=== PATIENT | female | born 1980 | race Caucasian/White ===

== ENCOUNTER 2020-08-30 05:54 | Emergency (ER) | payer OTHER ==
[~2020-08-30] VITALS: Ht 165.1 cm; Wt 58.0 kg
[2020-08-30 06:12] VITALS: BP 124/89
--- NOTE | 2020-08-30 06:13 | PHYS DOC ---
General Adult EDM: Chief Complaint: ABDOMINAL PAIN HPI: HPI: 39 yo (has 6yo son) F PMH chronic fatigue (on naltrexone?), and C2 tumor (s/p removal), presents to the ed with c/o left pelvic pain, sharp, nonradiating, stating it's worse when she walks or flexes her hip, x2 days. Also reports suprapubic pressure. She states her pelvic pain often feels as if she has rectal pain. Last menstrual period was August 12. Last bowel movement was yesterday, normal brown color, denies diarrhea or constipation. Sexually active with her , wears, condoms because she's "sensitive" to control. PSH-C/S, bilateral ACL repair, right rotator cuff repair and C2 spinal cord tumor resection. Patient denies any active vaginal bleeding, abnormal vaginal discharge, itching or odor. Pt denies any alcohol or drug use. Review of Systems: Review of Systems: Constitutional: Denies fever or chills Eyes: Denies change in visual acuity HENT: Denies nasal congestion or sore throat Respiratory: Denies cough or shortness of breath Cardiovascular: Denies chest pain or edema GI: Denies nausea, vomiting, bloody stools or diarrhea : Denies dysuria or hematuria Musculoskeletal: Denies saddle anesthesia or joint pain Integument: Denies rash Neurologic: Denies headache, focal weakness or sensory changes or neck stiffness Endocrine: Denies polyuria or polydipsia Lymphatic: Denies swollen glands Psychiatric: Denies depression or anxiety Heart Score: Risk Factors: Risk Factors: DM, Current or recent (<one month) smoker, HTN, HLP, family history of CAD, obesity. Risk Scores: Score 0 - 3: 2.5% MACE over next 6 weeks - Discharge Home Score 4 - 6: 20.3% MACE over next 6 weeks - Admit for Clinical Observation Score 7 - 10: 72.7% MACE over next 6 weeks - Early Invasive Strategies Physical Exam: PE: Constitutional: Well developed, well nourished, no acute distress, non-toxic appearance, very thin HENT: Normocephalic, atraumatic, bilateral external ears normal, oropharynx moist, no oral exudates, nose normal. [] Eyes: EOMI, conjunctiva normal, no discharge. [] Neck: Normal range of motion, supple, no stridor. [] Cardiovascular:Heart rate regular rhythm, no murmur [] Lungs & Thorax: Bilateral breath sounds clear to auscultation [] Abdomen: Bowel sounds normal, soft, unable to reproduce tenderness in LLQ/left pelvic region, no masses, no pulsatile masses. [] Skin: Warm, dry, no erythema, no rash. [] Back: No tenderness, no CVA tenderness. [] Extremities: No tenderness, no cyanosis, no clubbing, ROM intact, no edema. [] Neurologic: Alert and oriented X 3, normal motor function, normal sensory function, no focal deficits noted. [] Psychologic: Affect normal, judgement normal, mood normal. [] EKG: EKG: [] Radiology/Procedures: Radiology/Procedures: IMAGING REPORT Signed PATIENT: JESSICA GAGNON: [id number] : 1980 LOCATION: ER AGE: 39 SEX: F EXAM STATUS: REG ER ORD. PHYSICIAN: MIKE BARRIGA DO REASON: left pelvic pain PROCEDURE: PELVIS COMPLETE Transabdominal pelvic ultrasound INDICATION: Left pelvic pain TECHNIQUE: Grayscale, color and spectral Doppler imaging of the pelvis was performed transabdominally using the distended urinary bladder as an acoustic window. FINDINGS: The retroflexed uterus measures 9.6 x 5.2 x 4.6 cm. Calcification in the lower anterior uterine segment is present. The endometrial stripe measures 9 mm. Right ovary measures 3.3 x 1.6 x 1.5 cm and demonstrates normal blood flow. Left ovary measures 4.8 x 3.8 x 3.4 cm and demonstrates normal blood flow. Within the left ovary is a mixed echogenicity 3.0 x 2.5 x 3.5 cm nonvascular mass, with an apparent fluid fluid level. This corresponds with the patient's reported area of tenderness. No significant pelvic free fluid. The distended urinary bladder is unremarkable. IMPRESSION: Sonographic findings suggestive of a hemorrhagic left ovarian cyst. Consider follow-up ultrasound in 6 weeks to assure resolution. Otherwise normal pelvic ultrasound with a calcification in the lower uterine segment that could reflect a scar. Electronically signed by: Hammad Love MD (08/30/2020 8:19 AM) [id number] DICTATED AND SIGNED BY: HAMMAD LOVE MD DATE: 08/30/20818 CC: PCPKARUNA; MIKE BARRIGA DO ~ Course & Med Decision Making: Course & Med Decision Making Pertinent Labs and Imaging studies reviewed. (See chart for details) Concern for left ovarian cyst, possible hemorrhagic cyst. Treat conservatively with NSAIDs and [id number] Tylenol. Patient very well-appearing with no anemia, is hemodynamically stable. Contaminated urine sample-negative for nitrites and leukocyte esterase. Strict ED return precautions were given for severe abdominal/back pain or vaginal bleeding. Encouraged urgent outpatient follow-up with PMD and obgyn-repeat ultrasound in 6 weeks. Life-threatening processes were considered but are low suspicion at this time, given history and physical exam. Pt was educated on all prescription medications and adverse effects. All patient's questions were answered and pt was stable at time of discharge. Life/limb-threatening differential includes but is not limited to, aortic dissection, aortic aneurysm, acute coronary syndrome, surgical abdomen (appendicitis, cholecystitis, ischemic bowel, strangulated hernia, etc), bowel obstruction or volvulus, bladder outlet obstruction, gastrointestinal bleeding, inflammatory bowel disease, peptic ulcer disease, sepsis, diverticular disease, ureterolithiasis, nephrolithiasis, ovarian torsion, ectopic , vaginal hemorrhage, or genitourinary infection. I spoken with the patient and her caregivers. I explained the patient's condition, diagnoses and treatment plan based on the information available to me at this time. I have answered the patient and her caregiver's questions and addressed any concerns. The patient and her caregivers have a good understanding of patient's diagnosis, condition and treatment plan as can be expected at this point. Vital signs have been stable. Patient's condition is stable and appropriate for discharge from the emergency department. Patient will pursue further outpatient evaluation with primary care physician or other designated or consulting physician as outlined in the discharge instructions. The patient and/or caregivers are agreeable to this plan of care and follow-up instructions have been explained in detail. The patient and/or caregivers have received these instructions in written form and have expressed an understanding of the discharge instructions. The patient and/or caregivers are aware that any significant change of condition or worsening of symptoms should prompt immediate return to this or the closest emergency department or call to 911. Purnima Disclaimer: Purnima Disclaimer: This electronic medical record was generated, in whole or in part, using a voice recognition dictation system. Departure Departure: Impression: Primary Impression: Hemorrhagic cyst of left ovary Additional Impression: Pelvic pain Disposition: 01 HOME/RESIDENCE PRIOR TO ADM Condition: STABLE Referrals: PCP,NO (PCP) FOLLOW UP WITH FAMILY MEDICINE: Complete [facility], [facility] [address] [place] [address] OR [facility] [address] [place] [address], Patient Instructions: Ovarian Cyst, Pelvic Pain, Female Additional Instructions: FOLLOW UP WITH OBGYN: [facility] [address], [address] [place] [address] EMERGENCY DEPARTMENT GENERAL DISCHARGE INSTRUCTIONS Thank you for coming to [facility] (ED) today and trusting us with you care. We trust that you had a positivie experience in our Emergency Department. If you wish to speak to the department management, you may call the director at [phone]. YOUR FOLLOW UP INSTRUCTIONS ARE FOLLOWS: 1. Do you have a private Doctor? If you do not have a private doctor, please ask for a resource list of physicians or clinics that may be able to assist you with follow up care. 2. The Emergency Physician has interpreted your x-rays. The X-Ray specialist will also review them. If there is a change in the findings, you will be notified in 48 hours when at all possible. 3. A lab test or culture has been done, your results will be reviewed and you will be notified if you need a change in treatment. ADDITIONAL INSTRUCTIONS AND INFORMATION: 1. Your care today has been supervised by a physician who is specially trained in emergency care. Many problems require more than one evaluation for a complete diagnosis and treatment. We recommend that you schedule your follow up appointment as recommended to ensure complete treatment of you illness or injury. If you are unable to obtain follow up care and continue to have a problem, or if your condition worsens, we recommend that you return to the ED. 2. We are not able to safely determine your condition over the phone nor are we able to give sound medical advice over the phone. For these safety reasons, if you call for medical advice we will ask you to come to the ED for further evaluation. 3. If you have any questions regarding these discharge instructions please call the ED at [phone]. SAFETY INFORMATION: In the interest of safety, wellness, and injury prevention; we encourage you to wear your sealbelt, if you smoke; quite smoking, and we encourage family to use a protective helmet for bicycling and other sporting events that present an increased risk for head injury. IF YOUR SYMPTOMS WORSEN OR NEW SYMPTOMS DEVELOP, OR YOU HAVE CONCERNS ABOUT YOUR CONDITION; OR IF YOUR CONDITION WORSENS WHILE YOU ARE WAITING FOR YOUR FOLLOW UP APPOINTMENT; EITHER CONTACT YOUR PRIMARY CARE DOCTOR, THE PHYSICIAN WHOSE NAME AND NUMBER YOU WERE GIVEN, OR RETURN TO THE ED IMMEDIATELY. Scripts Ibuprofen (IBUPROFEN) 600 Mg Tablet 600 MG PO Q6HRS for headache, #20 TAB Prov: MIKE BARRIGA DO 08/30/20 MIKE BARRIGA DO Aug 30, 2020 06:13
[2020-08-30 07:00] LABS: BARBITURATES NEG (NEG); BENZODIAZEPINES NEG (NEG); CANNABINOIDS NEG (NEG); COCAINE NEG (NEG); METHADONE NEG (NEG); OPIATES NEG (NEG); PHENCYCLIDINE NEG (NEG)
[2020-08-30 07:01] LABS: AMPHETAMINE/METHAMPHETAMINE NEG (NEG)
[2020-08-30 07:07] LABS: BILIRUBIN,URINE NEG (NEG); CLARITY,URINE HAZY; COLOR,URINE YELLOW; GLUCOSE,URINE NEG (NEG)
[2020-08-30 07:08] LABS: BACTERIA,URINE FEW /HPF (0-FEW); NITRITE,URINE NEG (NEG); RBC,URINE OCC /HPF (0-2); SQUAMOUS EPITHELIAL CELL,UR MOD /LPF; UROBILINOGEN,URINE 0.2 mg/dL (0.2 mg/dL); WBC,URINE OCC /HPF (0-4)
[2020-08-30 07:31] LABS: BASO % 1 % (0-3); EOS # 0.1 x10^3/uL (0.0-0.7); EOS % 1 % (0-3); HEMATOCRIT 41.9 % (36.0-47.0); LYMPH % 13 % (24-48); MEAN CORPUSCULAR HEMOGLOBIN 30 pg (25-35); MEAN CORPUSCULAR HGB CONC 33 g/dL (31-37); MEAN CORPUSCULAR VOLUME 91 fL (79-100); MONO # 0.8 x10^3/uL (0.0-1.1); MONO % 10 % (0-9); NEUT # 6.1 x10^3uL (1.8-7.7); NEUT % 76 % (31-73); PLATELET COUNT 261 x10^3/uL (140-400); RED BLOOD COUNT 4.62 x10^6/uL (3.50-5.40)
[2020-08-30 07:38] LABS: CALCIUM 8.8 mg/dL (8.5-10.1); CREATININE 0.7 mg/dL (0.6-1.0); GFR 92.7; POTASSIUM 3.7 mmol/L (3.5-5.1)
[2020-08-30 07:44] LABS: ALBUMIN/GLOBULIN RATIO 1.3 (1.0-1.7); TOTAL BILIRUBIN 0.5 mg/dL (0.2-1.0)
--- NOTE | 2020-08-30 08:22 | RAD ---
Transabdominal pelvic ultrasound INDICATION: Left pelvic pain TECHNIQUE: Grayscale, color and spectral Doppler imaging of the pelvis was performed transabdominally using the distended urinary bladder as an acoustic window. FINDINGS: The retroflexed uterus measures 9.6 x 5.2 x 4.6 cm. Calcification in the lower anterior uterine segment is present. The endometrial stripe measures 9 mm. Right ovary measures 3.3 x 1.6 x 1.5 cm and demonstrates normal blood flow. Left ovary measures 4.8 x 3.8 x 3.4 cm and demonstrates normal blood flow. Within the left ovary is a mixed echogenicity 3.0 x 2.5 x 3.5 cm nonvascular mass, with an apparent fluid fluid level. This corresponds with the patient's reported area of tenderness. No significant pelvic free fluid. The distended urinary bladder is unremarkable. IMPRESSION: Sonographic findings suggestive of a hemorrhagic left ovarian cyst. Consider follow-up ultrasound in 6 weeks to assure resolution. Otherwise normal pelvic ultrasound with a calcification in the lower uterine segment that could reflect a scar. Electronically signed by: Stefani Love MD (08/30/2020 8:19 AM) [id number]
[2020-08-30] MEDS ORDERED: IBUP600T16 PO (08:30)
== END 2020-08-30 08:51 | disposition home or self-care (01) ==
LOC: ER 05:54
DX: N83.202 Unspecified ovarian cyst, left side (principal)
CPT/HCPCS: 36415; 76856; 80053; 80307; 81001; 81025; 85025; 99284

== ENCOUNTER → 2022-03-19 | Outpatient (CLI) | payer OTHER ==
[~2022-03-19] MED LIST: IBUP600T16 PO
--- NOTE | 2022-03-20 11:57 | RAD ---
Pelvic ultrasound 03/19/2022 CLINICAL HISTORY: Dysfunctional uterine bleeding. TECHNIQUE: Using the distended urinary bladder as a sonographic window, a real-time ultrasound examin ation of the pelvis was performed. Multiple images were obtained. FINDINGS: Comparison study is dated 08/30/2020. The uterus is retroflexed. It is normal in size and echogenicity. It measures 8.3 x 5.8 x 4.7 cm in l ongitudinal, transverse, and AP dimensions. The endometrial echo complex measures 9 mm in thickness w hich is within normal limits. No focal abnormality of the uterus is seen. Both ovaries are normal in size and echogenicity. The right ovary measures 3.3 x 2.6 x 1.6 cm in size. The left ovary measures 2 .9 x 2.8 x 2.0 cm in size. The 3 cm hemorrhagic cyst seen within the left ovary on the previous exami nation has resolved. Normal follicles are seen within both ovaries. No adnexal mass is seen. Normal c olor-flow and pulse Doppler imaging to both ovaries is noted. IMPRESSION: Negative study. Electronically signed by: Clark Ortiz MD (03/20/2022 11:54 AM) [id number]
== END ==
LOC: US 16:02
PROVIDERS: ATTEND Family Medicine
DX: N93.9 Abnormal uterine and vaginal bleeding, unspecified (principal)
CPT/HCPCS: 76856